=== PATIENT | male | born 1950 | race Caucasian/White ===

== ENCOUNTER 2022-02-06 09:52 | Emergency (ER) | payer OTHER, BC ==
[2022-02-06 10:02] VITALS: TEMP 97.2; BMI 20.3
[2022-02-06] MEDS ORDERED: SODIUM CHLORIDE 0.9% 500 ML INFUS.BAG IV ONE ×2 (10:42→10:43)
[2022-02-06] MEDS ORDERED: THIAMINE HCL 100 MG TABLET (FP) PO ONE (10:44)
[2022-02-06] MEDS ORDERED: MULTIVITAMINS (DAILY MVI) TABLET (FP) PO ONE (10:44)
[2022-02-06] MEDS ORDERED: FOLIC ACID 1 MG TABLET (FP) PO ONE (10:44)
[2022-02-06] MEDS ORDERED: MULTIVITAMINS (DAILY MVI) TABLET (FP) ONE (11:34)
[2022-02-06] MEDS ORDERED: FOLIC ACID 1 MG TABLET (FP) ONE (11:34)
[2022-02-06] MEDS ORDERED: THIAMINE HCL 100 MG TABLET (FP) ONE (11:34)
[2022-02-06 11:37] LABS: BASO % 0.8 % (0-2.0); EOS % 1.2 % (0-4.5); HEMATOCRIT 33.4 % (35.4-49); HEMOGLOBIN 11.1 GM/dL (11.7-16.9); MCH 32.9 pg (25.7-33.7); MCHC 33.3 g/dl (32.0-35.9); MEAN CELL VOLUME 98.9 fl (80-96); MEAN PLT VOLUME 7.3 fl (7.5-11.1); PLATELET COUNT 480 10^3/uL (134-434); RBC 3.38 M/mm3 (4.00-5.60); RDW 14.7 % (11.9-15.9); WHITE BLOOD COUNT 6.6 K/mm3 (4.0-10.0)
[2022-02-06 11:58] VITALS: BP 123/68; PULSE 66
[2022-02-06 12:00] LABS: ALBUMIN 3.3 g/dl (3.4-5.0); CALCIUM 8.8 mg/dL (8.5-10.1); MAGNESIUM 1.9 mg/dL (1.8-2.4)
[2022-02-06 12:04] LABS: CREATININE 1.8 mg/dL (0.55-1.3)
[2022-02-06 12:05] LABS: BILIRUBIN,TOTAL 0.2 mg/dL (0.2-1); TOT PROT 6.8 g/dl (6.4-8.2)
== END 2022-02-06 14:55 | disposition left against medical advice (07) ==
LOC: JER 09:52
DX: I95.1 Orthostatic hypotension (principal); R55 Syncope and collapse
CPT/HCPCS: 36415; 71045-TC-FY; 80053; 83735; 84484; 85025; 93005; 93010; 99285-25